=== PATIENT | female | born 1975 | race Caucasian/White ===

== ENCOUNTER 2020-08-02 06:12 | Day surgery (SDC) | payer BC ==
[2020-07-27 08:33] VITALS: BP 111/69
[~2020-08-02] VITALS: Ht 182.9 cm; Wt 86.1 kg
[~2020-08-02 06:12] MED LIST: BUPR300T94 PO; INUL1TAB4 PO; MULT-449 PO; TOPI50TA8 PO; calcium chews PO
[2020-08-02] MEDS ORDERED: LACTATED RINGERS 1,000 ML IV SCH (07:00)
[2020-08-02] MEDS ORDERED: CHLORHEXIDINE 15 ML UDC MM ONE (07:00)
[2020-08-02] MEDS ORDERED: GENTAMICIN 80 MG/2 ML ONE (07:01)
[2020-08-02] MEDS ORDERED: THROMBIN 5,000 UNIT VIAL TP ONE (07:01)
[2020-08-02] MEDS ORDERED: VANCOMYCIN 1,000 MG ONE (07:01)
[2020-08-02] MEDS ORDERED: BUPIVACAINE/PF 0.25% ONE (07:01)
[2020-08-02] MEDS ORDERED: EPINEPHRINE 1 MG/ML, 1ML ONE (07:01)
[2020-08-02] MEDS ORDERED: MIDAZOLAM 1 MG/ML, 2ML ONE (08:26)
[2020-08-02] MEDS ORDERED: FENTANYL PF 250 MCG/5ML ONE (08:26)
[2020-08-02] MEDS ORDERED: DEXAMETHASONE 4 MG/ML, 1ML ONE (08:45)
[2020-08-02] MEDS ORDERED: BUPIVACAINE 0.25% INFIL ONE (09:00)
[2020-08-02] MEDS ORDERED: FENTANYL PF 100 MCG/2ML IV PRN (09:30)
[2020-08-02] MEDS ORDERED: HYDROmorphone 1 MG/ML, 1ML INJ IVPush PRN (09:30)
[2020-08-02] MEDS ORDERED: OXYcodone 5 MG/5 ML ORAL.SOL UDC PO PRN (09:30)
[2020-08-02] MEDS ORDERED: PROMETHAZINE 25 MG SUPP PR PRN (09:30)
[2020-08-02] MEDS ORDERED: ONDANSETRON 2MG/ML, 2ML IVPush PRN (09:30)
[2020-08-02] MEDS ORDERED: LORazepam 2 MG/ML, 1ML IVPush PRN (09:30)
[2020-08-02] MEDS ORDERED: PROMETHAZINE 25 MG/ML, 1ML IVPush PRN (09:30)
[2020-08-02] MEDS ORDERED: CEFAZOLIN 1,000 MG ONE (10:40)
[2020-08-02] MEDS ORDERED: PROPOFOL 10 MG/ML, 20ML ONE (10:40)
[2020-08-02] MEDS ORDERED: ONDANSETRON 2MG/ML, 2ML ONE (10:40)
== END 2020-08-02 12:30 | disposition home or self-care (01) ==
LOC: OR 06:12 → OUT 12:30
PROVIDERS: ATTEND Urology
DX: N39.3 Stress incontinence (female) (male) (principal); N81.10 Cystocele, unspecified; G43.909 Migraine, unspecified, not intractable, without status migrainosus; Z79.899 Other long term (current) drug therapy; Z72.89 Other problems related to lifestyle; Z83.3 Family history of diabetes mellitus
CPT/HCPCS: 36415; 57240; 57288; 84703; C1771; J0171; J0690; J1100; J1580; J2250; J2405; J2704; J3010; J3370; J7120